=== PATIENT | male | born 1990 | race Caucasian/White ===

== ENCOUNTER 2018-02-07 04:23 | Emergency (ER) | payer SELFPAY ==
[~2018-02-07] VITALS: Ht 182.9 cm; Wt 86.3 kg
[2018-02-07 04:35] VITALS: Ht 182.9 cm; Wt 86.3 kg
[2018-02-07 08:03] VITALS: BP 140/90
== END 2018-02-07 08:03 | disposition home or self-care (01) ==
LOC: ED 04:23
DX: R20.2 Paresthesia of skin (principal); F15.20 Other stimulant dependence, uncomplicated; J45.909 Unspecified asthma, uncomplicated; I10 Essential (primary) hypertension
CPT/HCPCS: J2060

== ENCOUNTER 2018-02-07 18:17 | Emergency (ER) | payer MEDICAID ==
[~2018-02-07] VITALS: Ht 182.9 cm; Wt 85.3 kg
[2018-02-07 18:27] VITALS: BP 137/91; Ht 182.9 cm; Wt 85.3 kg
== END 2018-02-07 19:05 | disposition home or self-care (01) ==
LOC: ED 18:17
DX: R20.2 Paresthesia of skin (principal); I10 Essential (primary) hypertension; Z53.20 Procedure and treatment not carried out because of patient's decision for unspecified reasons

== ENCOUNTER 2018-03-29 10:15 | Emergency (ER) | payer MEDICAID ==
[~2018-03-29] VITALS: Ht 182.9 cm; Wt 82.1 kg
[2018-03-29 10:38] VITALS: Ht 182.9 cm; Wt 82.1 kg
[2018-03-29 11:57] VITALS: BP 140/86
== END 2018-03-29 11:57 | disposition home or self-care (01) ==
LOC: ED 10:15
DX: F41.9 Anxiety disorder, unspecified (principal); F15.10 Other stimulant abuse, uncomplicated; J45.909 Unspecified asthma, uncomplicated; I10 Essential (primary) hypertension

== ENCOUNTER 2018-08-24 12:47 | Emergency (ER) | payer OTHER ==
[~2018-08-24] VITALS: Ht 172.7 cm; Wt 59.0 kg
[2018-08-24 12:56] VITALS: Ht 172.7 cm; Wt 59.0 kg
[2018-08-24 13:17] LABS: CALCIUM 9.4 mg/dL (8.5-10.1); CARBON DIOXIDE 25.7 mmol/L (21-32); CHLORIDE SERUM 104 mmol/L (98-107); CREATININE SERUM 1.2 mg/dL (0.7-1.3); GFR1 > 60 mL/min; GLUCOSE SERUM 140 mg/dL (74-106); POTASSIUM SERUM 3.9 mmol/L (3.5-5.1); SODIUM SERUM 141 mmol/L (136-145)
[2018-08-24 13:18] LABS: BASOPHIL % 0.2 % (0-2); PLATELET COUNT 235 x10^3mcL (130-400)
[2018-08-24 13:30] LABS: ALBUMIN 4.5 g/dL (3.4-5.0); ALKALINE PHOSPHATASE 67 U/L (46-116); ALT/SGPT 17 U/L (16-63); AST/SGOT 11 U/L (15-37); T4(THYROXINE) 9.2 ug/dL (4.7-13.3); TOTAL PROTEIN, SERUM 7.7 g/dL (6.4-8.2)
[2018-08-24 17:08] LABS: AMPHETAMINE QUAL UR POSITIVE (See below)
[2018-08-24 23:33] VITALS: BP 112/74
== END 2018-08-24 23:33 | disposition home or self-care (01) ==
LOC: ED 12:47
PROVIDERS: Emergency Medicine
DX: R41.0 Disorientation, unspecified (principal); F15.10 Other stimulant abuse, uncomplicated; F41.9 Anxiety disorder, unspecified; J45.909 Unspecified asthma, uncomplicated; I10 Essential (primary) hypertension
CPT/HCPCS: 36415; G0480; J7030